=== PATIENT | female | born 1940 | race Two or more races ===

== ENCOUNTER 2020-04-23 08:49 | Outpatient (CLI) | payer OTHER | END 2020-04-23 08:56 | disposition home or self-care (01) | LOC: RX STUDY 08:49 | PROVIDERS: ATTEND Surgery | DX: K63.2 Fistula of intestine (principal); N82.3 Fistula of vagina to large intestine; K57.20 Diverticulitis of large intestine with perforation and abscess without bleeding ==

== ENCOUNTER 2020-06-01 10:45 | Inpatient (IN) | payer OTHER ==
[~2020-06-01] VITALS: Ht 160 cm; Wt 59.0 kg
[2020-06-01] MEDS ORDERED: XANAX XR1 MG PO (13:42)
[2020-06-01] MEDS ORDERED: MIRTAZAPINE15 M1 PO (13:42)
[2020-06-01] MEDS ORDERED: LASIX20 MG PO (13:43)
[2020-06-01] MEDS ORDERED: COZAAR50 MG PO (13:43)
[2020-06-01] MEDS ORDERED: SIMVASTATIN20 MG PO (13:43)
[2020-06-01] MEDS ORDERED: ASPIR 8181 MG PO (13:43)
[2020-06-01] MEDS ORDERED: PANTOPRAZOLE SO20 MG PO (13:44)
[2020-06-01] MEDS ORDERED: BIOTIN1 M1 PO (13:44)
[2020-06-01] MEDS ORDERED: LEVO-T25 MCG PO (13:44)
[2020-06-01] MEDS ORDERED: CARVEDILOL ER20 MG PO (13:44)
[2020-06-10] MEDS ORDERED: HYOSCYAMINE0.125 M1 SL (12:14)
[2020-06-10] MEDS ORDERED: OXYC1TAB9 PO (12:15)
== END 2020-06-10 15:46 | disposition home or self-care (01) | DRG 330 ==
LOC: O/R 06-07 06:56 → SURG 06-07 06:56 → SURH 06-07 10:45 → SURG 06-07 14:10 → SURH 06-07 17:00 → SURG 06-10 15:46
PROVIDERS: ADMIT Surgery; ATTEND Surgery
PROC: 0DJD8ZZ Inspection of Lower Intestinal Tract, Via Natural or Artificial Opening Endoscopic (ICD-10-PCS; 2020-06-07)
PROC: 0DTN4ZZ Resection of Sigmoid Colon, Percutaneous Endoscopic Approach (ICD-10-PCS; principal; 2020-06-07 17:00)
DX: K57.20 Diverticulitis of large intestine with perforation and abscess without bleeding (principal); N82.4 Other female intestinal-genital tract fistulae; I10 Essential (primary) hypertension